=== PATIENT | female | born 1950 | race Caucasian/White ===

== ENCOUNTER → 2017-09-11 | Outpatient (CLI) | payer OTHER, MEDICARE | END | disposition home or self-care (01) | LOC: C.MAMM 09:15 | PROVIDERS: ATTEND Internal Medicine | DX: Z13.820 Encounter for screening for osteoporosis (principal) ==

== ENCOUNTER 2017-09-30 10:58 | Emergency (ER) | payer OTHER, MEDICARE ==
[~2017-09-30] VITALS: Ht 162.6 cm; Wt 103.0 kg
[2017-09-30 11:02] VITALS: BP 174/77; PULSE 88; TEMP 36.6; O2SAT 96; Ht 162.6 cm; Wt 103.0 kg
[2017-09-30] MEDS ORDERED: AMLO2.5T PO (11:27)
[2017-09-30] MEDS ORDERED: ESTR0.05 TOP (11:27)
[2017-09-30] MEDS ORDERED: DIPHTHERIA/TETANUS/PERTUSSIS 0.5 ML SYR/VIAL IM. ONE (11:45)
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
== END 2017-09-30 12:15 | disposition home or self-care (01) ==
LOC: C.EDB 10:59 → C.EDD 12:15
DX: S80.812A Abrasion, left lower leg, initial encounter (principal); V49.40XA Driver injured in collision with unspecified motor vehicles in traffic accident, initial encounter; I10 Essential (primary) hypertension; Z88.0 Allergy status to penicillin; Z23 Encounter for immunization